=== PATIENT | female | born 1960 | race Caucasian/White ===

== ENCOUNTER 2020-07-25 15:05 | Emergency (ER) | payer BC ==
[~2020-07-25 15:05] MED LIST: Aspirin 81 MG Tab.Chew PO ONE
[2020-07-25] MEDS: Nitroglycerin 0.4 MG Tab.SL SL PRN ×2 (15:31→15:36)
[2020-07-25 15:33] LABS: PTT,PARTIAL THROMBOPLSTIN TIME 25.3 SEC (23.2-32.3)
--- NOTE | 2020-07-25 15:34 | EDM.PDOC ---
ED HPI GENERAL MEDICAL PROBLEM - General Chief Complaint: Chest Pain Stated Complaint: "anterior chest and jaw pain" Time Seen by Provider: 07/25/20 15:20 Source of Information: Reports: Patient History Limitations: Reports: No Limitations - History of Present Illness INITIAL COMMENTS - FREE TEXT/NARRATIVE: This patient is a 59 year old female that presents to the ER. Patient reports that last night she started having chest tightness and sharpness. She reports the pain is middle of chest and high and radiates to her jaw. She reports it lasted about 3 hours night and went away on its own. She reports she though it was her esophagus because she has a history of esophagitis and hiatal hernia with repair about 5 years ago. 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 She reports she was on the yoga ball doing yoga exercises and her chest started to hurt again. She reports that was about 9:30am, she reports it either resolved or she didnt pay it any attention after she was done with the yoga ball. She reports then about 11:30am her chest tightness and sharpness returned. She reports taking TUMs which usually works, but did not this time. She reports the pain has been a constant 3-4 on 10 pain scale since 11:30am. She reports the pain is worse with moving. She reports sitting, her pain is a 3, when moving the chest it is a 4. Patient denies heart problems. Reports heart problems of father, mother. Onset Date: 07/24/20 Location: Reports: Chest, Radiates to (jaw) Quality: Reports: Sharp, Other (tightness) Severity: Mild Improves with: Reports: Rest Worsens with: Reports: Movement Associated Symptoms: Reports: Chest Pain. 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: Reports: Aspirin (2 baby asa) Anterior Chest Pain Score (Numeric/FACES): 4 - Related Data Allergies Allergy/AdvReac Type Severity Reaction Status Date / Time pseudoephedrine Allergy Tachycardia Verified 07/25/20 15:06 [From Barry] Cat dander Allergy Cannot Uncoded 07/25/20 15:06 Remember Mold Allergy Cannot Uncoded 07/25/20 15:06 Remember Home Meds: Home Meds Acetaminophen [Tylenol] 325 - 650 mg PO ASDIRECTED PRN 11/06/14 [History] Ibuprofen 200 mg PO ASDIRECTED PRN 11/06/14 [History] Magnesium Oxide [Magnesium] 400 mg PO DAILY 11/06/14 [History] Naproxen Sodium 220 mg PO ASDIRECTED PRN 11/06/14 [History] Cholecalciferol (Vitamin D3) [Vitamin D3] 5,000 units PO DAILY 06/07/19 [History] DULoxetine HCl [Duloxetine HCl] 30 mg PO DAILY 06/07/19 [History] Pantoprazole Sodium [Protonix] 20 mg PO DAILY 06/07/19 [History] Past Medical History Cardiovascular History: Reports: High Cholesterol Respiratory History: Reports: Other (See Below) Other Respiratory History: Diaphragm spasms Gastrointestinal History: Reports: Gastritis, GERD Other Gastrointestinal History: erosive esophagitis Genitourinary History: Reports: UTI, Recurrent LATENT FINGERPRINT EXAMINER History: Reports: Other (See Below) Other LATENT FINGERPRINT EXAMINER History: A&P repair Musculoskeletal History: Reports: Fibromyalgia, Osteoarthritis Psychiatric History: Reports: Anxiety, Depression Endocrine/Metabolic History: Reports: Other (See Below) Other Endocrine/Metabolic History: reactive hypoglycemia - Past Surgical History HEENT Surgical History: Reports: Tonsillectomy Cardiovascular Surgical History: Reports: None GI Surgical History: Reports: Appendectomy, Cholecystectomy, Hernia Repair/Other Other GI Surgeries/Procedures: diagnostic lap x 2 Female Surgical History: Reports: Section, Hysterectomy Musculoskeletal Surgical History: Reports: None Social & Family History - Family History Family Medical History: No Pertinent Family History - Tobacco Use Tobacco Use Status *Q: Never Tobacco User - Caffeine Use Caffeine Use: Reports: Coffee, Tea ED ROS GENERAL - Review of Systems Review Of Systems: See Below Constitutional: Reports: No Symptoms HEENT: Reports: No Symptoms Respiratory: Reports: No Symptoms. Denies: Shortness of Breath, Cough, Sputum Cardiovascular: Reports: Chest Pain. Denies: Dyspnea on Exertion, Edema, Lightheadedness, Palpitations, Syncope Endocrine: Reports: No Symptoms GI/Abdominal: Reports: No Symptoms. Denies: Abdominal Pain, Nausea, Vomiting : Reports: No Symptoms Musculoskeletal: Reports: No Symptoms Skin: Reports: No Symptoms Neurological: Reports: No Symptoms Psychiatric: Reports: No Symptoms Hematologic/Lymphatic: Reports: No Symptoms Immunologic: Reports: No Symptoms ED EXAM, GENERAL - Physical Exam Exam: See Below Exam Limited By: No Limitations General Appearance: Alert, WD/WN, No Apparent Distress Eye Exam: Bilateral Eye: Normal Inspection, PERRL Ears: Normal External Exam, Normal Canal, Hearing Grossly Normal, Normal TMs Ear Exam: Bilateral Ear: Auricle Normal, Canal Normal, TM normal Nose: Normal Inspection, Normal Mucosa, No Blood Throat/Mouth: Normal Inspection, Normal Lips, Normal Teeth, Normal Gums, Normal Oropharynx, Normal Voice, No Airway Compromise Head: Atraumatic, Normocephalic Neck: Normal Inspection, Supple, Non-Tender, Full Range of Motion Respiratory/Chest: No Respiratory Distress, Lungs Clear, Normal Breath Sounds, No Accessory Muscle Use, Chest Non-Tender, Other (The chest is nontender, if I move RUE adduction across the chest it makes her sharp pain worse per patient.). No: Respiratory Distress, Decreased Breath Sounds, Crackles, Rales, Rhonchi, Wheezing, Stridor, Accessory Muscle Use, Retractions, Splinting, Prolonged Expiration Cardiovascular: Normal Peripheral Pulses, Regular Rate, Rhythm, No Edema, No Gallop, No JVD, No Murmur, No Rub Peripheral Pulses: 2+: Radial (L), Radial (R), Posterior Tibial (L), Posterior Tibial (R) GI/Abdominal: Soft, Non-Tender (Female) Exam: Deferred Rectal (Female) Exam: Deferred Back Exam: Normal Inspection, Full Range of Motion Extremities: Normal Inspection, Normal Range of Motion, Non-Tender, No Pedal Edema, Normal Capillary Refill Neurological: Alert, Oriented, Normal Cognition, Normal Gait, No Motor/Sensory Deficits Psychiatric: Normal Affect, Normal Mood Skin Exam: Warm, Dry, Intact, Normal Color, No Rash Lymphatic: No Adenopathy #1 Interpretation EKG Date: 07/25/20 Time: 15:05 Rhythm: NSR Rate (Beats/Min): 92 [place]: Normal P-Wave: Present QRS: Normal ST-T: Normal QT: Normal Course - Vital Signs Last Recorded V/S: Last Vital Signs Temp 98.6 F 07/25/20 20:20 Pulse 85 07/25/20 20:20 Resp 16 07/25/20 20:20 BP 158/92 H 07/25/20 20:20 Pulse Ox 95 07/25/20 20:20 - Orders/Labs/Meds Orders: Active Orders 24 hr Category Date Time Status Clear Liquid Diet [DIET] Diet 07/25/20 Dinner Active Chest 2V [CR] Stat Exams 07/25/20 15:03 Taken Nitroglycerin [Nitrostat] Med 07/25/20 15:29 Active 0.4 mg SL Q5M PRN Medication Orders Nitroglycerin (Nitrostat) 0.4 mg SL Q5M PRN PRN Reason: Chest Pain Last Admin: 07/25/20 15:36 Dose: 0.4 mg Documented by: Admin: 07/25/20 15:31 Dose: 0.4 mg Documented by: LORAINE Labs: Laboratory Tests 07/25/20 07/25/20 07/25/20 Range/Units 15:03 15:03 15:03 WBC 9.4 (5.0-10.0) 10^3/uL RBC 4.17 (4.00-5.50) 10^6/uL Hgb 12.8 (12.0-16.0) g/dL Hct 37.9 (37.0-47.0) % MCV 90.9 (82.0-94.0) fL MCH 30.7 (27.0-32.0) pg MCHC 33.8 (33.0-38.0) g/dL RDW Coeff of Delia 11.9 (11.0-15.0) % Plt Count 323 (150-400) 10^3/uL Neut % (Auto) 53.0 (35-85) % Lymph % (Auto) 39.3 (10-55) % Gregg % (Auto) 7.2 (0-16) % Eos % (Auto) 0.3 (0-5) % Baso % (Auto) 0.2 (0-3) % Neut # (Auto) 4.99 (1.80-7.00) 10^3/uL Lymph # (Auto) 3.71 (1.00-4.80) 10^3/uL Gregg # (Auto) 0.68 (0.00-0.80) 10^3/uL Eos # (Auto) 0.03 (0.00-0.45) 10^3/uL Baso # (Auto) 0.02 10^3/uL PT 10.5 (9.7-12.3) SEC INR 1.04 (0.92-1.18) APTT 25.3 (23.2-32.3) SEC Sodium 140 (136-145) mEq/L Potassium 4.5 (3.5-5.0) mEq/L Chloride 102 (98-106) mEq/L Carbon Dioxide 29 (21-32) mmol/L BUN 22 H (7-18) mg/dL Creatinine 1.4 H (0.6-1.0) mg/dL Est Cr Clr Drug Dosing 46.21 mL/min Estimated GFR (MDRD) 38 L (>=60) mL/min Glucose 86 (75-99) mg/dL Calcium 9.4 (8.4-10.1) mg/dL Total Bilirubin 0.3 (0.0-1.0) mg/dL AST 16 (15-37) U/L ALT 30 (12-78) U/L Alkaline Phosphatase 90 (46-116) U/L Lactate Dehydrogenase 140 (100-190) U/L Creatine Kinase 42 (21-215) U/L Troponin I < 0.017 (0.00-0.06) ng/mL Total Protein 7.4 (6.4-8.2) g/dL Albumin 3.8 (3.4-5.0) g/dL Lipase 99 (73-393) U/L SARS CoV-2 RNA Rapid ERON (NEGATIVE) 07/25/20 07/25/20 Range/Units 19:09 19:16 WBC (5.0-10.0) 10^3/uL RBC (4.00-5.50) 10^6/uL Hgb (12.0-16.0) g/dL Hct (37.0-47.0) % MCV (82.0-94.0) fL MCH (27.0-32.0) pg MCHC (33.0-38.0) g/dL RDW Coeff of Delia (11.0-15.0) % Plt Count (150-400) 10^3/uL Neut % (Auto) (35-85) % Lymph % (Auto) (10-55) % Gregg % (Auto) (0-16) % Eos % (Auto) (0-5) % Baso % (Auto) (0-3) % Neut # (Auto) (1.80-7.00) 10^3/uL Lymph # (Auto) (1.00-4.80) 10^3/uL Gregg # (Auto) (0.00-0.80) 10^3/uL Eos # (Auto) (0.00-0.45) 10^3/uL Baso # (Auto) 10^3/uL PT (9.7-12.3) SEC INR (0.92-1.18) APTT (23.2-32.3) SEC Sodium (136-145) mEq/L Potassium (3.5-5.0) mEq/L Chloride (98-106) mEq/L Carbon Dioxide (21-32) mmol/L BUN (7-18) mg/dL Creatinine (0.6-1.0) mg/dL Est Cr Clr Drug Dosing mL/min Estimated GFR (MDRD) (>=60) mL/min Glucose (75-99) mg/dL Calcium (8.4-10.1) mg/dL Total Bilirubin (0.0-1.0) mg/dL AST (15-37) U/L ALT (12-78) U/L Alkaline Phosphatase (46-116) U/L Lactate Dehydrogenase (100-190) U/L Creatine Kinase (21-215) U/L Troponin I < 0.017 (0.00-0.06) ng/mL Total Protein (6.4-8.2) g/dL Albumin (3.4-5.0) g/dL Lipase (73-393) U/L SARS CoV-2 RNA Rapid ERON Negative (NEGATIVE) Meds: Medications Generic Name Dose Route Start Last Admin Trade Name Freq PRN Reason Stop Dose Admin Nitroglycerin 0.4 mg 07/25/20 15:29 07/25/20 15:36 Nitrostat SL 0.4 mg Q5M PRN Administration Chest Pain Discontinued Medications Generic Name Dose Route Start Last Admin Trade Name Freq PRN Reason Stop Dose Admin Aspirin 324 mg 07/25/20 15:02 07/25/20 15:21 Aspirin PO 07/25/20 15:03 324 mg ONETIME ONE Administration Al Hydroxide/Mg Hydroxide 30 0 ml 07/25/20 19:01 07/25/20 19:17 ml/ Lidocaine HCl 15 ml PO 07/25/20 19:02 45 ml ONETIME ONE Administration Famotidine 20 mg 07/25/20 15:42 07/25/20 15:52 Pepcid IVPUSH 07/25/20 15:43 20 mg ONETIME ONE Administration Sodium Chloride 1,000 mls @ 1,000 mls/hr 07/25/20 15:42 07/25/20 15:55 Normal Saline IV 07/25/20 16:41 1,000 mls/hr .BOLUS ONE Administration Ketorolac Tromethamine 30 mg 07/25/20 20:16 07/25/20 20:51 Toradol IVPUSH 07/25/20 20:17 30 mg ONETIME ONE Administration Morphine Sulfate 4 mg 07/25/20 20:16 07/25/20 20:52 Morphine IVPUSH 07/25/20 20:17 4 mg ONETIME ONE Administration Ondansetron HCl 4 mg 07/25/20 20:16 07/25/20 20:52 Zofran IVPUSH 07/25/20 20:17 4 mg NOW STA Administration - Radiology Interpretation Free Text/Narrative:: CXR: perihilar thickening vs scarring. no focal infiltrates. - Re-Assessments/Exams Free Text/Narrative Re-Assessment/Exam: 07/25/20 15:30 patient reports after 1 nitro that her sharp pain has completely resolved. She reports her tightness is now a 1-2 on 10 scale. Another nitro given. 07/25/20 15:35 Patient reports after the 2nd nitro the sharp pain is a 0 and the tightness is a 0. I have reviewed labs, CR is 1.4. Troponin is negative. EKG NS. With patient history of esophagitis and reports does feel similar, I did give Pepcid order as well. I will keep the patient here 4 hours for repeat troponin. Patient HEART Score is 2, low. Reviewed patient CXR showing perihilar thickening vs scarring. Patient has no shortness of breath, cough, congestion, drainage at this time. 07/25/20 19:03 Patient reports her pain was resolved, but now after eating some clear liquids, her rightness in upper chest throat is now a 1/10. I have ordered a GI cocktail for patient. Her troponin is being drawn now. 07/25/20 20:20 The patient reports her pain is now a 4/10 and that the GI Cocktail did not help. Patient pain is easily manipulated by moving her right arm her chest. I will order more pain medication for patient to see if can resolve the pain. Repeat troponin is negative. 07/25/20 21:30 Patient reports her pain is a 0/10. I discharge patient home. I spent a good 30 minutes with patient discussing all her results and answering her questions. She has voiced back understanding of needing a stress test and when to return to the ER. Departure - Departure Time of Disposition: 21:59 Disposition: Home, Self-Care 01 Condition: Fair Clinical Impression: Atypical chest pain Instructions: Chest Wall Pain, [id number], Nonspecific Chest Pain, Adult, [id number], Angina, [id number] Referrals: Krysta Lacey JAVA ANALYST [Primary Care Provider] - Forms: ED Department Discharge Additional Instructions: Followup with your primary care provider this week and have a stress done out patient Return to the ER for worsening of chest pain, shortness of breath, nausea , or any concerns at all. Like we discussed, please return for any concerns or worsening Go home and rest Tylenol or Motrin for pain as needed Sepsis Event Note (ED) - Evaluation Sepsis Screening Result: No Definite Risk - Focused Exam Vital Signs: Vital Signs Temp Pulse Pulse Resp BP BP BP 07/25/20 20:20 98.6 F 85 16 158/92 H 07/25/20 18:08 97.8 F 91 16 149/81 H 07/25/20 15:56 97.7 F 81 16 137/80 07/25/20 15:40 97.5 F 98 16 126/82 07/25/20 15:36 98 135/84 07/25/20 15:34 92 135/84 07/25/20 15:31 85 162/93 H 07/25/20 15:22 83 162/93 H 07/25/20 15:15 88 143/79 H 07/25/20 15:06 97.5 F 91 18 147/83 H Pulse Ox 07/25/20 20:20 95 07/25/20 18:08 97 07/25/20 15:56 97 07/25/20 15:40 96 07/25/20 15:36 07/25/20 15:34 07/25/20 15:31 07/25/20 15:22 98 07/25/20 15:15 97 07/25/20 15:06 99 - My Orders Last 24 Hours: My Active Orders 07/25/20 15:03 Chest 2V [CR] Stat 07/25/20 15:29 Nitroglycerin [Nitrostat] 0.4 mg SL Q5M PRN 07/25/20 Dinner Clear Liquid Diet [DIET] - Assessment/Plan Last 24 Hours: My Active Orders 07/25/20 15:03 Chest 2V [CR] Stat 07/25/20 15:29 Nitroglycerin [Nitrostat] 0.4 mg SL Q5M PRN 07/25/20 Dinner Clear Liquid Diet [DIET] Plan: PLEASE SEE RN NOTE FOR PFSH
[2020-07-25 15:40] LABS: CHLORIDE,CL 102 mEq/L (98-106); SODIUM,NA 140 mEq/L (136-145)
[2020-07-25] MEDS ORDERED: Famotidine 20 MG/2 ML SDV IVPUSH ONE (15:42)
[2020-07-25] MEDS ORDERED: Sodium Chloride 0.9% 1,000 ML IV ONE (15:42)
[2020-07-25] MEDS ORDERED: Alum Hydrox/Mag Hydrox/Simeth 30 ML, Lidocaine 2% 15 ML PO ONE ×2 (19:01)
[2020-07-25] MEDS ORDERED: Ketorolac 30 MG/ML SDV IVPUSH ONE (20:16)
[2020-07-25] MEDS ORDERED: Ondansetron 4 MG/2 ML SDV IVPUSH STA (20:16)
[2020-07-25] MEDS ORDERED: Morphine 4 MG/ML VIAL IVPUSH ONE (20:16)
[2020-07-25 20:22] VITALS: BP 158/92; PULSE 85
== END 2020-07-25 22:15 | disposition home or self-care (01) ==
LOC: CC.ED 15:05
DX: R07.89 Other chest pain (principal); K21.9 Gastro-esophageal reflux disease without esophagitis; Z20.822 Contact with and (suspected) exposure to COVID-19; Z88.8 Allergy status to other drugs, medicaments and biological substances; Z91.048 Other nonmedicinal substance allergy status; Z79.899 Other long term (current) drug therapy
CPT/HCPCS: 36415; 71046; 80053; 82550; 83615; 83690; 84484; 85025; 85610; 85730; 87635; 93005; 96374; 96375; 99285; A9270; J1885; J2270; J2405; J3490; J7030; U0002

== ENCOUNTER → 2020-08-08 | Day surgery (SDC) | payer BC ==
[~2020-08-08] MED LIST changes: -Aspirin 81 MG Tab.Chew PO ONE; +Ketamine 200 MG/20 ML MDV ONE; +Lactated Ringers 1,000 ML IV SCH; +Lidocaine 2% 5 ML SDV ONE; +Propofol 200 MG/20 ML SDV ONE; +fentaNYL 100 MCG/2 ML SDV ONE
[2020-08-08 11:16] VITALS: BP 118/66; PULSE 75
--- NOTE | 2020-08-08 14:25 | OR ---
DATE OF OPERATION: 08/08/2020 PREOPERATIVE DIAGNOSIS: CHEST PAIN, SUSPECTED GASTROESOPHAGEAL REFLUX DISEASE. POSTOPERATIVE DIAGNOSIS: CHEST PAIN, SUSPECTED GASTROESOPHAGEAL REFLUX DISEASE. SURGEON: Kendrick Honeycutt MD PROCEDURE: DIAGNOSTIC ESOPHAGOGASTRODUODENOSCOPY WITH BIOPSIES X5, LUBNA. ANESTHESIA: MAC. COMPLICATIONS: None. SPECIMEN: 1. Antral biopsy x2. 2. Antral LUBNA. 3. Fundal polyp biopsy x2. 4. Biopsy x1, distal esophagus. FINDINGS: 1. Full-length diagnostic EGD. 2. Mild antral gastritis without erosion or ulceration. 3. Fundal polyposis, diffuse. 4. Recurrent moderate-sized hiatal hernia with mild reflux esophagitis. RECOMMENDATIONS: The patient to continue proton pump therapy and have discussion with provider regarding long-term followup. INDICATIONS: Mrs. Garcia 5 years ago had a lap Conchis for a large hiatal hernia and uncontrolled reflux. She had been doing well until the last 2 months where she was starting to get heartburn symptoms and atypical chest pain. She was sent for diagnostic EGD. DESCRIPTION OF PROCEDURE: The patient was prepped and draped, placed in the left lateral decubitus position with head of the bed elevated. Lubricated Olympus gastroscope was inserted over a bite-block, advanced to cricopharyngeus area, and easily intubated into the esophagus. The esophageal lining was benign in its entire course until its most distal portion where the patient has 2 small very mild areas of reflux esophagitis. Biopsy was taken of the most affected portion. The Z-line was crisp, around 33 to 34 cm. The patient's hernia has recurred and is moderate in size. The scope was advanced into the stomach, through the pylorus, and into the second portion of the duodenum. This and the duodenal bulb were unremarkable. The scope was brought back into the stomach and retroflexed. Hernia visualized from below. The patient has diffuse fundal polyposis. We did remove 2 of these with forceps for confirmatory reasons. The scope was straightened and the rest of the fundus and antrum were evaluated. The patient did have some very mild antral gastritis in its distal portion around the pyloric region. Two biopsies were taken along with a CLOtest of an unaffected portion. Air was then suctioned and the scope removed without complication. DENISE/SHAYNE /[id number]
== END ==
LOC: CC.SDS 09:43
PROVIDERS: ATTEND Family Medicine
DX: K29.50 Unspecified chronic gastritis without bleeding (principal); K31.89 Other diseases of stomach and duodenum; K31.7 Polyp of stomach and duodenum; K25.9 Gastric ulcer, unspecified as acute or chronic, without hemorrhage or perforation; K29.70 Gastritis, unspecified, without bleeding; K44.9 Diaphragmatic hernia without obstruction or gangrene; K21.00 Gastro-esophageal reflux disease with esophagitis, without bleeding; G89.29 Other chronic pain; E78.5 Hyperlipidemia, unspecified; E55.9 Vitamin D deficiency, unspecified; K22.10 Ulcer of esophagus without bleeding; G43.909 Migraine, unspecified, not intractable, without status migrainosus; Z01.812 Encounter for preprocedural laboratory examination; Z20.822 Contact with and (suspected) exposure to COVID-19; Z88.8 Allergy status to other drugs, medicaments and biological substances; Z79.899 Other long term (current) drug therapy; Z90.49 Acquired absence of other specified parts of digestive tract; Z98.890 Other specified postprocedural states
CPT/HCPCS: 00731; 87081; J2704; J3010; J7120

== ENCOUNTER → 2021-10-23 | Day surgery (SDC) | payer BC ==
[~2021-10-23] MED LIST changes: +Flumazenil 0.1 MG/ML 10 ML MDV ONE; -Ketamine 200 MG/20 ML MDV ONE; -Lidocaine 2% 5 ML SDV ONE; +Midazolam 1 MG/ML 2 ML SDV ONE
[2021-10-23 13:50] VITALS: BP 128/73; PULSE 75
== END ==
LOC: CC.SDS 11:59
PROVIDERS: ATTEND Family Medicine
DX: R19.4 Change in bowel habit (principal); F32.A Depression, unspecified; E78.5 Hyperlipidemia, unspecified; E55.9 Vitamin D deficiency, unspecified; M79.7 Fibromyalgia; H93.19 Tinnitus, unspecified ear; Z88.8 Allergy status to other drugs, medicaments and biological substances; Z79.899 Other long term (current) drug therapy; Z90.49 Acquired absence of other specified parts of digestive tract; Z98.890 Other specified postprocedural states
CPT/HCPCS: 00811; J2250; J2704; J3010; J7120

== ENCOUNTER 2022-11-28 17:14 | Emergency (ER) | payer BC ==
[2022-11-28 17:26] LABS: APPEARANCE,URINE CLEAR (CLEAR); BILIRUBIN,URINE NEGATIVE (NEGATIVE); COLOR,URINE YELLOW (YELLOW); GLUCOSE,URINE NEGATIVE (NEGATIVE); KETONES,URINE NEGATIVE (NEGATIVE); LEUKOCYTE ESTERASE,URINE TRACE (NEGATIVE); NITRITE,URINE NEGATIVE (NEGATIVE); OCCULT BLOOD,URINE SMALL (NEGATIVE); PROTEIN,URINE NEGATIVE (NEGATIVE)
[2022-11-28 17:32] VITALS: BP 142/89; PULSE 90
[2022-11-28 17:34] LABS: BACTERIA,URINE FEW /HPF (NOT SEEN); EPITHELIAL CELLS,URINE FEW /HPF (NOT SEEN); MUCUS,URINE MODERATE /HPF (NOT SEEN); RBC,URINE 0-5 /HPF (0-5); WBC,URINE 20-30 /HPF (0-5)
== END 2022-11-28 17:50 | disposition home or self-care (01) ==
LOC: CC.ED 17:14
DX: R30.0 Dysuria (principal); K21.9 Gastro-esophageal reflux disease without esophagitis; Z79.899 Other long term (current) drug therapy; Z91.048 Other nonmedicinal substance allergy status; Z88.8 Allergy status to other drugs, medicaments and biological substances
CPT/HCPCS: 81001; 87086; 99283; 99284

== ENCOUNTER 2024-08-01 10:14 | Emergency (ER) | payer BC ==
[2024-08-01 10:41] VITALS: BP 129/75; PULSE 78
[2024-08-01 11:12] LABS: BASOPHILS ABSOLUTE AUTO 0.02 10^3/uL (0.00-0.50); BASOPHILS PERCENT AUTO 0.3 % (0-1); EOSINOPHILS ABSOLUTE AUTO 0.09 10^3/uL (0.00-1.50); EOSINOPHILS PERCENT AUTO 1.3 % (0-6); HEMATOCRIT 37.2 % (37.0-47.0); HEMOGLOBIN 12.6 g/dL (12.0-16.0); IMMATURE GRAN ABSOLUTE AUTO 0.01 10^3/uL (0.00-0.49); IMMATURE GRAN PERCENT AUTO 0.1 % (0.0-4.9); LYMPHOCYTES ABSOLUTE AUTO 2.88 10^3/uL (0.60-5.00); LYMPHOCYTES PERCENT AUTO 41.3 % (24-44); MEAN CORPUSCULAR HEMOGLOBIN 30.5 pg (27.0-32.0); MEAN CORPUSCULAR HGB CONC 33.9 g/dL (32.0-36.0); MEAN CORPUSCULAR VOLUME 90.1 fL (83.0-97.0); MONOCYTES PERCENT AUTO 5.7 % (0-10); NEUTROPHILS ABSOLUTE AUTO 3.57 x10^3/uL (1.80-8.00); NEUTROPHILS PERCENT AUTO 51.3 % (41-71); PLATELET COUNT,PLT 320 10^3/uL (150-400); RED BLOOD CELL COUNT 4.13 x10^6/uL (4.00-5.50)
[2024-08-01 11:29] LABS: ALANINE AMINOTRANSFERASE,ALT 44 U/L (12-78); ALBUMIN 3.7 g/dL (3.4-5.0); ALKALINE PHOSPHATASE 95 U/L (46-116); ASPARTATE AMNIOTRANSFERASE,AST 28 U/L (15-37); BILIRUBIN TOTAL 0.4 mg/dL (0.0-1.0); BLOOD UREA NITROGEN,BUN 21 mg/dL (7-18); CALCIUM 9.5 mg/dL (8.4-10.1); CARBON DIOXIDE,CO2 24 mmol/L (21-32); CHLORIDE,CL 106 mEq/L (98-106); CREATININE 0.9 mg/dL (0.6-1.0); EST CRCL DRUG DOSING (CG) 65.99 mL/min; GLUCOSE RANDOM 95 mg/dL (75-99); LIPASE 18 U/L (16-77); POTASSIUM,K 4.1 mEq/L (3.5-5.0); PROTEIN TOTAL,TP 7.1 g/dL (6.4-8.2); SODIUM,NA 141 mEq/L (136-145)
[2024-08-01 11:31] LABS: C-REACTIVE PROTEIN < 0.50 mg/dL (<=0.50); ESTIMATED GFR 71 mL/min (>=60)
[2024-08-01 11:35] LABS: INR 1.01 (0.92-1.18); PROTHROMBIN TIME 10.6 SEC (9.3-11.3)
== END 2024-08-01 11:57 | disposition home or self-care (01) ==
LOC: CC.ED 10:14
DX: K22.4 Dyskinesia of esophagus (principal); K21.9 Gastro-esophageal reflux disease without esophagitis; Z90.49 Acquired absence of other specified parts of digestive tract; Z90.710 Acquired absence of both cervix and uterus; Z88.8 Allergy status to other drugs, medicaments and biological substances; Z91.048 Other nonmedicinal substance allergy status; Z79.899 Other long term (current) drug therapy
CPT/HCPCS: 36415; 71046; 80053; 83690; 84484; 85025; 85610; 85730; 86140; 93005; 99285